=== PATIENT | male | born 1980 ===

== ENCOUNTER → 2016-07-12 | Outpatient (REF) | payer BC | LOC: M LAB REF 12:42 | PROVIDERS: ATTEND Nurse Practitioner Family | DX: E29.1 Testicular hypofunction (principal) ==

== ENCOUNTER → 2021-04-22 | Outpatient (REF) | payer BC ==
[2021-04-23 20:07] LABS: TESTOSTERONE FREE (DIRECT) 8.5 pg/mL (6.8-21.5)
== END ==
LOC: M LAB REF 12:19
PROVIDERS: ATTEND Internal Medicine
DX: E29.1 Testicular hypofunction (principal)

== ENCOUNTER → 2021-09-22 | Outpatient (REF) | payer BC | LOC: M LAB REF 12:06 | PROVIDERS: ATTEND Internal Medicine | DX: E29.1 Testicular hypofunction (principal); N52.9 Male erectile dysfunction, unspecified ==